=== PATIENT | male | born 1975 | race Caucasian/White ===

== ENCOUNTER → 2017-06-25 | Outpatient (CLI) | payer MEDICAID | LOC: BRMIMAGING 11:30 | PROVIDERS: ATTEND Registered Nurse | DX: R07.81 Pleurodynia (principal) | CPT/HCPCS: 71046-PO ==

== ENCOUNTER → 2018-04-02 | Outpatient (CLI) | payer MEDICAID | LOC: BRMIMAGING 11:44 | PROVIDERS: ATTEND Registered Nurse | DX: R07.81 Pleurodynia (principal); S29.9XXA Unspecified injury of thorax, initial encounter; V00.322A Snow-skier colliding with stationary object, initial encounter; Y93.23 Activity, snow (alpine) (downhill) skiing, snowboarding, sledding, tobogganing and snow tubing; Y92.838 Other recreation area as the place of occurrence of the external cause | CPT/HCPCS: 71100-PO ==